=== PATIENT | female | born 1965 | race African-American/Black ===

== ENCOUNTER 2016-10-21 23:28 | Emergency (ER) | payer OTHER ==
[~2016-10-21] VITALS: Ht 170.2 cm; Wt 77.1 kg
[~2016-10-21 23:28] MED LIST: ADDERALL 20 MG20 M1 PO; AMBIEN 5 MG TABL5 M1; AMBIEN 5 MG TABL5 M1 PO; ASPIR 8181 MG PO; ASPIRIN81 MG PO; ATIVAN0.5 MG PO; BUSPIRONE HCL7.5 MG PO; BUTALBIT-ACETA1 EACH PO; CYCLOBENZAPRINE10 MG PO; CYCLOBENZAPRINE5 MG PO; DICLOFENAC SOD50 M1; ESCITALOPRAM OX10 MG PO; FAMOTIDINE OR; FAMOTIDINE PO; HCTZ; HYDROCODONE-AP1 EAC6 PO; IBUPROFEN 600600 M1 PO; IBUPROFEN 800800 M1 PO; IMITREX 25 MG T25 M1 PO; KLONOPIN0.5 MG PO; LIORESAL 10 MG10 MG PO; LISINOPRIL-HCT1 EAC2 PO; LISINOPRIL10 MG PO; LISINOPRIL20 MG PO; LUNESTA2 MG; MACROBID 100 M100 M1 PO; MECLIZINE HCL25 M1 PO; METOPROLOL SUCC50 MG PO; NAPROSYN500 MG PO; NEURONTIN 300300 M1 PO; NORCO 5-325 TA1 EACH PO; NORFLEX100 MG PO; PEPCID AC20 M1; PEPCID AC20 MG PO; PERCOCET 5-3251 EACH PO; PHENERGAN 25 MG25 M1 PO; PHENERGAN50 MG RC; POTASSIUM20 PO; PREDNISONE 10 M10 MG PO; TOPAMAX25 M1 PO; TOPROL XL50 MG PO; VICODIN OR; XANAX 0.25 MG0.25 MG PO; ZOLOFT50 MG PO
[2016-10-22 00:21] LABS: ABSOLUTE NEUTROPHILS 4.7 thou/uL (1.4-8.2); BASOPHILS 0.8 % (0.0-2.0); EOSINOPHILS 0.8 % (0.0-3.0); HEMATOCRIT 37.9 % (37.0-47.0); HEMOGLOBIN 12.7 gm/dL (12.0-15.0); MCH 28.5 pg (26.0-34.0); MCHC 33.4 g/dL (28.0-37.0); MCV 85.3 fL (80.0-100.0); MONOCYTES 6.5 % (1.0-8.0); PLATELET COUNT 259 thou/uL (150-400); POLYS 50.9 % (36.0-66.0); RBC 4.44 mil/uL (4.20-5.00); RDW 13.8 % (10.5-14.5); WBC 9.2 thou/uL (4.0-11.0)
[2016-10-22 00:28] LABS: CALCIUM 9.2 mg/dL (8.5-10.1)
[2016-10-22 00:32] LABS: ALBUMIN 3.8 g/dL (3.4-5.0); TOTAL BILIRUBIN 0.3 mg/dL (<0.1-1.0); TOTAL PROTEIN 7.9 g/dL (6.4-8.2)
[2016-10-22 00:33] LABS: MANUAL DIFF NO
[2016-10-22 00:57] LABS: URINE BILIRUBIN NEGATIVE (Negative); URINE BLOOD 1+ (Negative); URINE COLOR YELLOW; URINE GLUCOSE-RANDOM* NEGATIVE (Negative); URINE KETONES NEGATIVE (Negative); URINE LEUKOCYTES-REFLEX NEGATIVE (Negative); URINE PROTEIN (DIPSTICK) NEGATIVE (Negative); URINE SPECIFIC GRAVITY 1.025 (1.003-1.035); URINE UROBILINOGEN 0.2 E.U./dl (0.2-1.0)
[2016-10-22] MEDS ORDERED: AMBIEN 5 MG TABL5 M1 PO (01:08)
[2016-10-22] MEDS ORDERED: ESGIC 50-325-41 EACH PO (01:10)
[2016-10-22 01:12] LABS: SQUAMOUS 0-3 Few /LPF (0-3)
[2016-10-22] MEDS ORDERED: ATORVASTATIN CA40 MG PO (01:12)
[2016-10-22 01:13] LABS: CASTS None Seen /LPF (None Seen); CRYSTALS None Seen /LPF (None Seen); URINE RBC None Seen /HPF (0-2); URINE WBC-REFLEX None Seen /HPF (0-5)
[2016-10-22] MEDS ORDERED: ZANAFLEX4 MG PO (01:17)
== END 2016-10-22 02:40 | disposition home or self-care (01) ==
LOC: ER 23:28
PROVIDERS: Emergency Medicine
DX: R10.11 Right upper quadrant pain (principal); R94.5 Abnormal results of liver function studies; K80.80 Other cholelithiasis without obstruction; I10 Essential (primary) hypertension

== ENCOUNTER 2016-12-18 07:21 | Emergency (ER) | payer OTHER ==
[~2016-12-18] VITALS: Ht 170.2 cm; Wt 83.9 kg
--- NOTE | ~2016-12-18 | EKG ---
[address] [place] [address] ELECTROCARDIOGRAM REPORT Name: ZOILA SINGH 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 : 1965 Requested By: Miguel Ángel Harris Order Number: [id number] MD: Bill Arriaga Measurements Intervals [place] Rate: 52 P: 26 VT: 194 QRS: 29 QRSD: 112 T: 215 QT: 484 QTc: 451 Interpretive Statements Sinus rhythm Borderline intraventricular conduction delay Nonspecific T abnormalities, diffuse leads Compared to ECG 06/27/2015 05:55:13 Prolonged QT interval no longer present T-wave abnormality still present Electronically Signed On 12-19-2016 22:14:40 CDT by Bill Arriaga [email or web address] <ELECTRONICALLY SIGNED> By: Bill Arriaga MD 12/19/16 2214 6 6 Bill Arriaga MD /EPI
[~2016-12-18 07:21] MED LIST changes: +ATORVASTATIN CA40 MG PO; +ESGIC 50-325-41 EACH PO; +ZANAFLEX4 MG PO
[2016-12-18 07:56] LABS: ABSOLUTE NEUTROPHILS 4.3 thou/uL (1.4-8.2); BASOPHILS 0.5 % (0.0-2.0); EOSINOPHILS 0.5 % (0.0-3.0); HEMATOCRIT 38.3 % (37.0-47.0); HEMOGLOBIN 12.7 gm/dL (12.0-15.0); LYMPHOCYTES 43.3 % (24.0-44.0); MCH 28.8 pg (26.0-34.0); MCHC 33.1 g/dL (28.0-37.0); MCV 86.9 fL (80.0-100.0); PLATELET COUNT 225 thou/uL (150-400); POLYS 49.7 % (36.0-66.0); RBC 4.41 mil/uL (4.20-5.00); RDW 13.7 % (10.5-14.5); WBC 8.7 thou/uL (4.0-11.0)
[2016-12-18 07:57] LABS: MANUAL DIFF NO
[2016-12-18 07:58] LABS: ANION GAP 5 mmol/L (7-16); BUN 15 mg/dL (7-18); CALCIUM 8.8 mg/dL (8.5-10.1); CHLORIDE 106 mmol/L (98-107); CO2 33 mmol/L (21-32); CREATININE 1.3 mg/dL (0.6-1.0); GLUCOSE 177 mg/dL (74-106); POTASSIUM 3.6 mmol/L (3.5-5.1); SODIUM 144 mmol/L (136-145)
[2016-12-18 08:07] LABS: ALBUMIN 3.4 g/dL (3.4-5.0); ALKALINE PHOSPHATASE 106 U/L (46-116); SGOT 89 U/L (15-37); SGPT 51 U/L (30-65); TOTAL BILIRUBIN 0.5 mg/dL (<0.1-1.0); TOTAL PROTEIN 6.6 g/dL (6.4-8.2); TROPONIN-I < 0.04 ng/mL (<0.04-0.07)
[2016-12-18 09:43] LABS: URINE BILIRUBIN NEGATIVE (Negative); URINE BLOOD TRACE (Negative); URINE COLOR YELLOW; URINE GLUCOSE-RANDOM* NEGATIVE (Negative); URINE KETONES NEGATIVE (Negative); URINE LEUKOCYTES-REFLEX NEGATIVE (Negative); URINE PROTEIN (DIPSTICK) TRACE (Negative)
[2016-12-18 10:03] LABS: CASTS None Seen /LPF (None Seen); SQUAMOUS 4-10 Moderate /LPF (0-3)
[2016-12-18 10:05] LABS: CRYSTALS None Seen /LPF (None Seen); URINE RBC 0-2 Rare /HPF (0-2); URINE WBC-REFLEX 6-15 Few /HPF (0-5)
[2016-12-18] MEDS ORDERED: PRILOSEC 20 MG20 MG PO (11:41)
[2016-12-18] MEDS ORDERED: TRAMADOL 50 MG50 MG PO (11:41)
[2016-12-18] MEDS ORDERED: ZOFRAN ODT8 MG PO (11:41)
== END 2016-12-18 11:43 | disposition home or self-care (01) ==
LOC: ER 07:21
PROVIDERS: Emergency Medicine
DX: R10.13 Epigastric pain (principal); R73.9 Hyperglycemia, unspecified; E87.5 Hyperkalemia; I10 Essential (primary) hypertension; G43.909 Migraine, unspecified, not intractable, without status migrainosus

== ENCOUNTER 2017-11-17 08:41 | Emergency (ER) | payer OTHER ==
[~2017-11-17] VITALS: Ht 170.2 cm; Wt 80.7 kg
--- NOTE | ~2017-11-17 | EKG ---
[place] [address] [facility] [place] [address] ELECTROCARDIOGRAM REPORT Name: ZOILA SINGH [facility] [id number] Admission: 11/17/17 Attend Phys: Discharge: 11/17/17 Date of : 67 Report #: [id number] THIS REPORT FOR: //name// [facility] ED Test Date: 2017-11-17 Test Time: 09:01:00 Pat Name: ZOILA SINGH Department: Room: Gender: F Supply Person: [place] : 1965 Requested By: Miguel Ángel Harris Order Number: [id number] MD: Harley Holliday Measurements Intervals [place] Rate: 79 P: 62 AR: 166 QRS: 33 QRSD: 103 T: 21 QT: 414 QTc: 475 Interpretive Statements Sinus rhythm Borderline T wave abnormalities Compared to ECG 12/18/2016 08:17:07 No significant changes Electronically Signed On 11-18-2017 8:32:23 CDT by Harley Holliday [email or web address] <ELECTRONICALLY SIGNED> By: Harley Holliday MD, [facility] 11/18/17 0832 09 09 Harley Holliday MD, FACC /EPI
[~2017-11-17 08:41] MED LIST changes: +PRILOSEC 20 MG20 MG PO; +TRAMADOL 50 MG50 MG PO; +ZOFRAN ODT8 MG PO
[2017-11-17 09:00] LABS: ABSOLUTE NEUTROPHILS 3.1 thou/uL (1.4-8.2); EOSINOPHILS 0.7 % (0.0-3.0); HEMATOCRIT 36.9 % (37.0-47.0); HEMOGLOBIN 12.5 gm/dL (12.0-15.0); LYMPHOCYTES 46.4 % (24.0-44.0); MCH 28.9 pg (26.0-34.0); MCHC 33.9 g/dL (28.0-37.0); MCV 85.3 fL (80.0-100.0); MONOCYTES 9.1 % (1.0-8.0); PLATELET COUNT 227 thou/uL (150-400); POLYS 42.8 % (36.0-66.0); RBC 4.32 mil/uL (4.20-5.00); RDW 13.4 % (10.5-14.5); WBC 7.2 thou/uL (4.0-11.0)
[2017-11-17 09:05] LABS: URINE BILIRUBIN NEGATIVE (Negative); URINE BLOOD TRACE (Negative); URINE CLARITY CLEAR; URINE COLOR YELLOW; URINE GLUCOSE-RANDOM* NEGATIVE (Negative); URINE KETONES NEGATIVE (Negative); URINE LEUKOCYTES NEGATIVE (Negative); URINE NITRITE NEGATIVE (Negative); URINE PROTEIN (DIPSTICK) NEGATIVE (Negative); URINE UROBILINOGEN 0.2 E.U./dl (0.2-1.0)
[2017-11-17 09:09] LABS: ANION GAP 6 mmol/L (7-16); BUN 22 mg/dL (7-18); CHLORIDE 104 mmol/L (98-107); CO2 27 mmol/L (21-32); CREATININE 1.3 mg/dL (0.6-1.0); GLUCOSE 115 mg/dL (74-106); POTASSIUM 4.4 mmol/L (3.5-5.1); SODIUM 137 mmol/L (136-145)
[2017-11-17 09:17] LABS: ALBUMIN 3.6 g/dL (3.4-5.0); MAGNESIUM 2.1 mg/dL (1.8-2.4); SGOT 17 U/L (15-37); SGPT 18 U/L (30-65); TOTAL BILIRUBIN 0.5 mg/dL (<0.1-1.0); TOTAL PROTEIN 7.8 g/dL (6.4-8.2); TROPONIN-I <0.06 ng/mL (<0.06)
[2017-11-17 10:09] LABS: AMP/METHAMP POSITIVE (Negative); BARBITURATES Negative (Negative); BENZODIAZEPINES Negative (Negative); COCAINE Negative (Negative); METHADONE Negative (Negative); OPIATES POSITIVE (Negative); PCP Negative (Negative)
== END 2017-11-17 10:58 | disposition home or self-care (01) ==
LOC: ER 08:41
PROVIDERS: Emergency Medicine; Physician Assistant
DX: R55 Syncope and collapse (principal); S00.212A Abrasion of left eyelid and periocular area, initial encounter; I10 Essential (primary) hypertension; G43.909 Migraine, unspecified, not intractable, without status migrainosus; W18.39XA Other fall on same level, initial encounter; Y92.89 Other specified places as the place of occurrence of the external cause; Y93.89 Activity, other specified; Y99.8 Other external cause status

== ENCOUNTER 2018-09-12 20:38 | Emergency (ER) | payer OTHER ==
[~2018-09-12] VITALS: Ht 170.2 cm; Wt 86.2 kg
[2018-09-12] MEDS ORDERED: OLMSRTN-AMLDPN1 EAC4 PO (21:07)
[2018-09-12 21:45] LABS: URINE BILIRUBIN NEGATIVE (Negative); URINE BLOOD 1+ (Negative); URINE CLARITY CLEAR; URINE COLOR YELLOW; URINE GLUCOSE-RANDOM* NEGATIVE (Negative); URINE KETONES NEGATIVE (Negative); URINE LEUKOCYTES-REFLEX TRACE (Negative); URINE NITRITE-REFLEX NEGATIVE (Negative); URINE PROTEIN (DIPSTICK) NEGATIVE (Negative); URINE SPECIFIC GRAVITY 1.025 (1.005-1.035); URINE UROBILINOGEN 0.2 E.U./dl (0.2-1.0)
[2018-09-12 21:59] LABS: BACTERIA-REFLEX >30 Many /HPF (None Seen); CASTS None Seen /LPF (None Seen); CRYSTALS None Seen /LPF (None Seen); SQUAMOUS 4-10 Moderate /LPF (0-3); URINE RBC 0-2 Rare /HPF (0-2); URINE WBC-REFLEX 0-5 Rare /HPF (0-5)
[2018-09-13] MEDS ORDERED: VALIUM5 MG PO (04:51)
[2018-09-13] MEDS ORDERED: NORCO 5-325 TA1 EACH PO (04:51)
[2018-09-13 05:05] VITALS: BP 121/66
== END 2018-09-13 05:06 | disposition home or self-care (01) ==
LOC: ER 20:38
PROVIDERS: Emergency Medicine
DX: M48.061 Spinal stenosis, lumbar region without neurogenic claudication (principal); M51.27 Other intervertebral disc displacement, lumbosacral region; I10 Essential (primary) hypertension; G43.909 Migraine, unspecified, not intractable, without status migrainosus

== ENCOUNTER 2019-06-01 06:52 | Emergency (ER) | payer OTHER ==
[~2019-06-01] VITALS: Ht 170.2 cm; Wt 82.6 kg
[~2019-06-01 06:52] MED LIST changes: +OLMSRTN-AMLDPN1 EAC4 PO; +VALIUM5 MG PO
[2019-06-01 08:06] LABS: CALCIUM 9.1 mg/dL (8.5-10.1); CREATININE 1.1 mg/dL (0.6-1.0); POTASSIUM 4.1 mmol/L (3.5-5.1)
[2019-06-01 08:12] LABS: ALBUMIN 3.5 g/dL (3.4-5.0); TOTAL BILIRUBIN 0.7 mg/dL (<0.1-1.0); TOTAL PROTEIN 7.7 g/dL (6.4-8.2)
[2019-06-01 08:43] LABS: HEMATOCRIT 33.7 % (37.0-47.0); HEMOGLOBIN 11.2 gm/dL (12.0-15.0); MCH 28.6 pg (26.0-34.0); MCHC 33.3 g/dL (28.0-37.0); MCV 85.9 fL (80.0-100.0); PLATELET COUNT 199 thou/uL (150-400); RBC 3.92 mil/uL (4.20-5.00); RDW 13.9 % (10.5-14.5); WBC 7.4 thou/uL (4.0-11.0)
[2019-06-01 08:57] LABS: URINE BILIRUBIN NEGATIVE (Negative); URINE BLOOD 1+ (Negative); URINE CLARITY CLEAR; URINE COLOR YELLOW; URINE GLUCOSE-RANDOM* NEGATIVE (Negative); URINE KETONES NEGATIVE (Negative); URINE LEUKOCYTES-REFLEX NEGATIVE (Negative); URINE NITRITE-REFLEX NEGATIVE (Negative); URINE PROTEIN (DIPSTICK) NEGATIVE (Negative)
[2019-06-01 09:05] LABS: BACTERIA-REFLEX 1-9 Few /HPF (None Seen); CASTS None Seen /LPF (None Seen); CRYSTALS None Seen /LPF (None Seen); SQUAMOUS 0-3 Few /LPF (0-3); URINE RBC 3-10 Few /HPF (0-2); URINE WBC-REFLEX None Seen /HPF (0-5)
[2019-06-01 09:08] LABS: ABSOLUTE NEUTROPHILS 4.6 thou/uL (1.4-8.2); ATYPICAL LYMPHS 6 %; PLATELET ESTIMATE NORMAL
[2019-06-01] MEDS ORDERED: NAPROSYN500 MG PO (10:44)
[2019-06-01] MEDS ORDERED: TESSALON PERLE100 MG PO (10:44)
[2019-06-01 10:52] VITALS: BP 130/74
== END 2019-06-01 10:53 | disposition home or self-care (01) ==
LOC: ER 06:52
PROVIDERS: Emergency Medicine
DX: J02.9 Acute pharyngitis, unspecified (principal); I10 Essential (primary) hypertension; G43.909 Migraine, unspecified, not intractable, without status migrainosus; Z98.51 Tubal ligation status

== ENCOUNTER 2019-07-24 21:24 | Inpatient (IN) | payer OTHER ==
[~2019-07-24] VITALS: Ht 170.2 cm; Wt 83.7 kg
[~2019-07-24 21:24] MED LIST changes: +TESSALON PERLE100 MG PO
[2019-07-24 21:35] VITALS: BP 169/97
[2019-07-24 23:09] LABS: ABSOLUTE NEUTROPHILS 4.4 thou/uL (1.4-8.2); BASOPHILS 0.4 % (0.0-2.0); EOSINOPHILS 0.5 % (0.0-3.0); HEMATOCRIT 40.2 % (37.0-47.0); HEMOGLOBIN 13.2 gm/dL (12.0-15.0); LYMPHOCYTES 47.6 % (24.0-44.0); MCH 28.3 pg (26.0-34.0); MCHC 32.9 g/dL (28.0-37.0); MCV 85.8 fL (80.0-100.0); MONOCYTES 8.2 % (1.0-8.0); PLATELET COUNT 292 thou/uL (150-400); POLYS 43.3 % (36.0-66.0); RBC 4.68 mil/uL (4.20-5.00); RDW 13.9 % (10.5-14.5); WBC 10.1 thou/uL (4.0-11.0)
[2019-07-24 23:13] LABS: ANION GAP 10 mmol/L (7-16); BUN 14 mg/dL (7-18); CHLORIDE 101 mmol/L (98-107); CO2 27 mmol/L (21-32); CREATININE 1.3 mg/dL (0.6-1.0); GLUCOSE 112 mg/dL (74-106); POTASSIUM 3.3 mmol/L (3.5-5.1); SODIUM 138 mmol/L (136-145)
[2019-07-24 23:22] LABS: APTT 26.1 Seconds (24.5-32.8); PROTIME 10.2 Seconds (9.3-11.4)
[2019-07-24 23:23] LABS: ALBUMIN 3.9 g/dL (3.4-5.0); SGOT 25 U/L (15-37); SGPT 25 U/L (30-65); TOTAL BILIRUBIN 0.7 mg/dL (<0.1-1.0); TOTAL PROTEIN 8.1 g/dL (6.4-8.2); TROPONIN-I <0.06 ng/mL (<0.06)
[2019-07-25] VITALS (10 sets, daily range): BP systolic 134–175; BP diastolic 70–102
[2019-07-25 06:35] LABS: CHOLESTEROL 138 mg/dL (<200); HDL CHOLESTEROL 60 mg/dL (>40); LDL CHOLESTEROL 64 mg/dL (<100); TC:HDL 2.3 Ratio (Not establshd); TRIGLYCERIDE 70 mg/dL (<150); VLDL 14 mg/dL (<40)
[2019-07-25 06:36] LABS: SERUM ASSESSMENT Clear
[2019-07-25] MEDS ORDERED: OXYCODONE HCL 55 MG PO (08:03)
--- NOTE | 2019-07-25 09:06 | NUR ---
Pt admitted from Er to 359 to r/o stroke. Pt stated she had numness and tingling to left hand and arm and left leg. She also c/o headache. Pain med given with adequate relief. Pt fell asleep. Bed alarm on . Home meds sent to pharmacy.
--- NOTE | 2019-07-25 09:58 | 2DMMODE ---
[facility] [place] [address] 2 D/M-MODE ECHOCARDIOGRAM Name: ZOILA SINGH Room #: 359-P ADM IN M.R.#: [id number] Admission: 07/25/19 Attend Phys: Gabriel Yadav MD Discharge: Date of : 67 Report #: [id number] THIS REPORT FOR: cc: ROGER SEVERINO Physician not on staff Johnson Moody MD ~ APPROVED REPORT Study performed: 07/25/2019 08:57:36 EXAM: Comprehensive 2D, Doppler, and color-flow Echocardiogram Patient Location: Bedside Room #: [facility] Status: routine BSA: 1.91 HR: 61 bpm BP: 146/86 mmHg Rhythm: NSR Other Information Study Quality: Adequate Indications Hypertension/HDD possible TIA Echo Enhancing Agent Indication: Rule out Shunt Agent(s) / Amount(s) Used: Agitated Saline 6 cc 2D Dimensions RVDd: 29.00 mm IVSd: 11.34 (7-11mm) LVOT Diam: 23.01 (18-24mm) LVDd: 48.12 mm PWd: 10.68 (7-11mm) Ascending Ao: 30.41 (22-36mm) LVDs: 29.67 (25-40mm) Aortic Root: 30.28 mm IVC: 11.00 mm Volumes Left Atrial Volume (Systole) Single Plane 4CH: 44.10 mL Single Plane 2CH: 36.80 mL LA ESV Index: 23.00 mL/m2 Aortic Valve [facility] [address] [place] [address] 2 D/M-MODE ECHOCARDIOGRAM Name: ZOILA SINGH Room #: 359-P [facility] IN .R.#: [id number] Admission: 07/25/19 Attend Phys: Gabriel Yadav MD Discharge: Date of : 67 Report #: [id number] AoV Peak Osmar.: 1.28 m/s AO Peak Gr.: 6.56 mmHg LVOT Max P.67 mmHg LVOT Max V: 1.08 m/s HUE Vmax: 3.51 cm2 Mitral Valve E/A Ratio: 0.8 MV Decel. Time: 307.34 ms MV E Max Osmar.: 0.58 m/s MV A Osmar.: 0.75 m/s MV PHT: 89.13 ms IVRT: 155.71 ms Pulmonary Valve PV Peak Osmar.: 1.05 m/s PV Peak Gr.: 4.38 mmHg Pulmonary Vein P Vein S: 0.51 m/s P Vein A: 0.27 m/s P Vein D: 0.30 m/s P Vein A Dur.: 115.3 msec P Vein S/D Ratio: 1.70 Tricuspid Valve TR Peak Osmar.: 2.35 m/s RAP Estimate: 5.00 mmHg TR Peak Gr.: 22.13 mmHg PA Pressure: 27.00 mmHg Left Ventricle The left ventricle is normal size. There is normal LV segmental wall motion. There is normal left ventricular wall thickness. The left ventricular systolic function is normal. The left ventricular ejection fraction is within the normal range. LVEF is 60%. Mild diastolic dysfunction is present (impaired relaxation pattern). Right Ventricle The right ventricle is normal size. The right ventricular systolic function is normal. Atria The left atrium size is normal. No shunting by contrast bubble injection. The right atrium size is normal. Aortic Valve The aortic valve is normal in structure. No aortic regurgitation is present. There is no aortic valvular stenosis. [facility] [address] [place] [address] 2 D/M-MODE ECHOCARDIOGRAM Name: ZOILA SINGH Room #: 359-P [facility] IN ..#: [id number] Admission: 07/25/19 Attend Phys: Gabriel Yadav MD Discharge: Date of : 67 Report #: [id number] Mitral Valve The mitral valve is normal in structure. Trace mitral regurgitation. No evidence of mitral valve stenosis. Tricuspid Valve The tricuspid valve is normal in structure. Trace tricuspid regurgitation. PAP is estimated at 27 mmHg. Pulmonic Valve The pulmonary valve is normal in structure. There is no pulmonic valvular regurgitation. Great Vessels The aortic root is normal in size. IVC is normal in size and collapses >50% with inspiration. Pericardium There is no pericardial effusion. <Conclusion> The left ventricle is normal size. LVEF is 60%. No shunting by contrast bubble injection. The aortic valve is normal in structure. The mitral valve is normal in structure. Trace mitral regurgitation. The tricuspid valve is normal in structure. Trace tricuspid regurgitation. PAP is estimated at 27 mmHg. The pulmonary valve is normal in structure. There is no pericardial effusion. <ELECTRONICALLY SIGNED> By: Johnson Moody MD 07/25/19 0957 6 09 Johnson Moody MD /INF
[2019-07-25 16:43] LABS: URINE BILIRUBIN NEGATIVE (Negative); URINE BLOOD TRACE (Negative); URINE CLARITY CLEAR; URINE COLOR YELLOW; URINE GLUCOSE-RANDOM* NEGATIVE (Negative); URINE KETONES NEGATIVE (Negative); URINE NITRITE-REFLEX NEGATIVE (Negative); URINE PROTEIN (DIPSTICK) NEGATIVE (Negative); URINE SPECIFIC GRAVITY >= 1.030 (1.005-1.035); URINE UROBILINOGEN 0.2 E.U./dl (0.2-1.0)
[2019-07-25 16:50] LABS: URINE LEUKOCYTES-REFLEX 1+ (Negative)
[2019-07-25 16:59] LABS: CASTS None Seen /LPF (None Seen); SQUAMOUS >10 Many /LPF (0-3)
[2019-07-25 17:00] LABS: BACTERIA-REFLEX >30 Many /HPF (None Seen); CRYSTALS None Seen /LPF (None Seen); URINE RBC 0-2 Rare /HPF (0-2); URINE WBC-REFLEX >25 Many /HPF (0-5)
--- NOTE | 2019-07-25 17:39 | NUR ---
ASSUMED CARE 0700. ALERT X4 FROM HOME. PT DENIES SOB, PT DENIES CHEST PAIN, HEADACHE PAIN RELIEVED WITH PRN MEDICATIONS, VOICED NUMBNESS LEFT JAW, MRI OF HEAD NO ACUTE INDICATION, STAND BY ASSIST. CONTINENT BLADDER, NO BM NOTED AT THIS TIME. NS ON TELE. PT VOICED SHE HOPED TO DC TODAY. NEUROLOGY ROUNDED. FALL PRECAUTIONS IN PLACE. CONTINUE TO MONITOR
[2019-07-25 22:07] LABS: GLYCOHEMOGLOBIN (HGB A1C) 5.9 % (4.8-5.6)
[2019-07-26 03:40] VITALS: BP 140/73
--- NOTE | 2019-07-26 05:02 | NUR ---
PT C/O HEADACHE AT THE START OF THE SHIFT ACETAMINOHPEN AND BUTALBITAL WERE ADMINISTERED WITH SUCCESS AT RELIEVING THE PAIN. PT WAS CONCERENED OVER HIGH BLOOD PRESSURE, HYDRALAZINE ADMINISTERED BY THE RN, BP WAS LOWERED, PATIENT WAS SATISFIED. ORTHOSTATIC BP WAS COLLECTED DURING THE SHIFT R/T DIZZINESS WHEN GETTING UP. PT IS ALSO REQUESTING AMBIEN WHICH WAS TAKEN AT HOME. WILL CONTINUE TO TREAT FOLLOWING THE PLAN OF CARE W/ IVF AND IVPB. UA ANALYSIS WAS INDICATIVE OF UTI, SPEECH PATHOLOGY ASSISTANT NOTIFIED, IV ABX ORDER RECEIVED AND ADMINISTERED THROUGHOUT SHIFT. PT BEGAN THE SHIFT WITH MILD ANXIETY AND WAS SEEN SLEEPING THROUGHOUT THE SHIFT. WILL CONTINUE TO MONITOR.
--- NOTE | 2019-07-26 07:45 | EKG ---
[facility] [place] [address] ELECTROCARDIOGRAM REPORT Name: ZOILA SINGH Room #: 359- ADM IN M.R.#: [id number] Admission: 07/25/19 Attend Phys: Gabriel Yadav MD Discharge: Date of : 67 Report #: [id number] THIS REPORT FOR: cc: ROGER SEVERINO Physician not on staff Harley Holliday MD [facility] THIS REPORT FOR: //name// [facility] ED Test Date: 2019-07-24 Test Time: 21:57:49 Pat Name: ZOILA SINGH Department: Room: [facility] Gender: F Night Cleaner: ANA : 1965 Requested By: Andrez Ravi Order Number: [id number] MD: Harley Holliday Measurements Intervals [place] Rate: 81 P: 16 ID: 174 QRS: 40 QRSD: 104 T: 20 QT: 425 QTc: 494 Interpretive Statements Sinus rhythm Nonspecific T wave abnormality Borderline prolonged QT interval Baseline wander in lead(s) V3 Compared to ECG 11/17/2017 09:01:00 No significant change was found Electronically Signed On 07-26-2019 7:44:05 CDT by Harley Holliday [email or web address] <ELECTRONICALLY SIGNED> By: Harley Holliday MD, [facility] 07/26/19 0744 215 56 Harley Holliday MD, FAC /EPI
[2019-07-26 07:48] VITALS: BP 164/94
[2019-07-26 11:26] VITALS: BP 163/84
[2019-07-26] MEDS ORDERED: KEFLEX500 M1 PO (13:49)
[2019-07-26] MEDS ORDERED: ASPIR 8181 M1 PO (13:51)
--- NOTE | 2019-07-26 15:14 | NUR ---
pt is A&OX3, PT'S VS ARE STABLE, PT IS CONTIUNING IV ABX, PT DENIES S/S OF UTI, PT GETS UP TO BATH ROOM , PT DENIES PAIN AND N/V , RN HAS RECEIVED DR ORDER TO DC PT TO HOME TODAY.
[2019-07-26 15:18] VITALS: BP 163/84
--- NOTE | 2019-07-26 16:11 | NUR ---
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
--- NOTE | 2019-07-26 16:47 | HC ---
[facility] [place] [address] CONSULTATION Name: ZOILA SINGH Room #: 359-P [facility] IN M.R.#: [id number] Admission: 07/25/19 Attend Phys: Gabriel Yadav MD Discharge: 07/26/19 Date of : 67 Report #: [id number] THIS REPORT FOR: cc: ROGER SEVERINO Physician not on staff Thom Rico MD ~ CC: ROGER Yadav Physician staff DATE OF SERVICE: 07/25/2019 HISTORY OF PRESENT ILLNESS: This is a 54-year-old female patient who was evaluated by me for the possibility of stroke. The patient's symptoms are pretty unstructured and examination is pretty impersistent and very unusual. She said she does have some hypertension and her blood pressure was high. The highest blood pressure recorded during this admission was 169/97. She started having some tingling and numbness. It was mostly in the chest area. She did have some involvement of the face and the arm after that. She indicated she is feeling somewhat better. REVIEW OF SYSTEMS: Positive for chronic back pain. She does have some tingling and numbness in the past, which is sporadic. She has a history of anxiety. There is a longstanding problem. She said she has a history of syncope. A 14-point review of system was carried out and this was a relevant 14-point review of system. PAST MEDICAL HISTORY: Positive for hypertension. FAMILY HISTORY: Positive for heart attack. SOCIAL HISTORY: She drinks alcohol on special occasion and she does not smoke. PHYSICAL EXAMINATION: Indicates she is alert, responsive, able to follow simple and complex command. She talks very softly. When I tried to do the visual field, she randomly says she cannot see much. When I tried to do the sensory system examination, she randomly says she cannot even feel the position sense on occasion and other occasion she can. No cardiac or respiratory abnormalities. The blood pressure is 141/74, respiration is 20, pulse is 67, and temperature is 97.8. LABORATORY DATA: WBC count is 10.1. Carotid Doppler was unremarkable. MRI is pending. IMPRESSION: It would appear this patient has a lot of anxiety. Whether anxiety is the sole cause of the patient's problems or whether some additional problem [address] [address] CONSULTATION Name: ZOILA SINGH Room #: 359-P [facility] IN .R.#: [id number] Admission: 07/25/19 Attend Phys: Gabriel Yadav MD Discharge: 07/26/19 Date of : 67 Report #: [id number] is there, we will determine that. We will look at the MRI. We may do an MRA of the head, but from clinical indication, it would appear that a lot of it may be anxiety. We will look at the MRI and follow up with you. Thank you very much for this referral. About 50 minutes of time was spent taking care of this patient today and majority of that time was spent counseling and coordinating. <ELECTRONICALLY SIGNED> By: Thom Rico MD 07/26/19 1647 1654 22 Thom Rico MD /nt
== END 2019-07-26 16:14 | disposition home or self-care (01) | DRG 65 ==
LOC: ER 21:24 → 3W 07-25 02:57 → EROBS 07-25 02:57 → 3W 07-25 03:32
PROVIDERS: Emergency Medicine; Nurse Practitioner Family; ADMIT Hospitalist
DX: I63.9 Cerebral infarction, unspecified (principal); N17.9 Acute kidney failure, unspecified; G43.909 Migraine, unspecified, not intractable, without status migrainosus; F41.9 Anxiety disorder, unspecified; G89.29 Other chronic pain; M54.9 Dorsalgia, unspecified; G47.00 Insomnia, unspecified; N18.9 Chronic kidney disease, unspecified; M43.16 Spondylolisthesis, lumbar region; I12.9 Hypertensive chronic kidney disease with stage 1 through stage 4 chronic kidney disease, or unspecified chronic kidney disease; Z82.49 Family history of ischemic heart disease and other diseases of the circulatory system; Z86.718 Personal history of other venous thrombosis and embolism; Z83.3 Family history of diabetes mellitus; Z81.8 Family history of other mental and behavioral disorders; Z82.3 Family history of stroke
CPT/HCPCS: 10879

== ENCOUNTER 2020-04-26 16:45 | Emergency (ER) | payer OTHER ==
[~2020-04-26] VITALS: Ht 170.2 cm; Wt 82.6 kg
[~2020-04-26 16:45] MED LIST changes: +ASPIR 8181 M1 PO; +KEFLEX500 M1 PO; +OXYCODONE HCL 55 MG PO
[2020-04-26] MEDS ORDERED: ZPAK PO (18:06)
[2020-04-26 18:31] VITALS: BP 120/79
== END 2020-04-26 18:30 | disposition home or self-care (01) ==
LOC: ER 16:45
DX: U07.1 COVID-19 (principal); I10 Essential (primary) hypertension; G43.909 Migraine, unspecified, not intractable, without status migrainosus; Z98.51 Tubal ligation status; Z79.2 Long term (current) use of antibiotics; Z79.82 Long term (current) use of aspirin; Z79.899 Other long term (current) drug therapy